=== PATIENT | male | born 1960 | race Caucasian/White ===

== ENCOUNTER 2019-02-10 08:24 | Outpatient (CLI) | payer BC ==
--- NOTE | 2019-02-10 08:41 | RAD ---
EXAM: Chest 2 views: HISTORY: Abnormal breath sounds COMPARISON: None. FINDINGS: There is a normal-sized cardiomediastinal silhouette. There is no evidence of consolidation, mass, or pleural effusion. The bones are unremarkable. IMPRESSION: No evidence of acute cardiopulmonary disease
== END 2019-02-10 08:25 | disposition home or self-care (01) ==
LOC: BICRAD 08:24
PROVIDERS: ATTEND Family Medicine
DX: R06.89 Other abnormalities of breathing (principal)
CPT/HCPCS: 71046